=== PATIENT | male | born 1950 | race Caucasian/White ===

== ENCOUNTER 2023-04-17 09:24 | Outpatient (CLI) | payer MEDICARE, SELFPAY | END 2023-04-17 09:25 | disposition home or self-care (01) | LOC: NFLDREF 04-18 07:15 | PROVIDERS: PCP Physician Assistant Medical; Referring Provider Physician Assistant Medical; Visit Provider Physician Assistant Medical | DX: M25.50 Pain in unspecified joint (principal); R03.0 Elevated blood-pressure reading, without diagnosis of hypertension; Z13.220 Encounter for screening for lipoid disorders; R36.1 Hematospermia; Z13.9 Encounter for screening, unspecified | CPT/HCPCS: 80053; 80061; 84443; 84550; 86200; 86431; 87086; G0103 ==